=== PATIENT | female | born 1950 | race American Indian/Alaskan Native ===

== ENCOUNTER 2016-12-25 18:57 | Emergency (ER) | payer MEDICARE ==
[2016-12-25 19:35] VITALS: BP 169/91
== END 2016-12-26 19:45 | disposition left against medical advice (07) ==
LOC: ED 18:57
DX: M25.511 Pain in right shoulder (principal); M19.90 Unspecified osteoarthritis, unspecified site; Z53.21 Procedure and treatment not carried out due to patient leaving prior to being seen by health care provider

== ENCOUNTER 2017-03-04 11:47 | Emergency (ER) | payer MEDICARE ==
--- NOTE | 2017-03-04 17:39 | Emergency Department Report ---
HPI - General Chief Complaint: Extremity Injury, Lower Time Seen by Provider: 03/04/17 17:23 - HPI HPI: Room 3 The pt is a 66 y/o F p/w a cc of foot cramping. The pt appears slightly confused but states she came to the emergency dept 2/2 bilat foot cramping. The pt states she "ran away" from home today and went to a friends house for breakfast. the pt then states she began to "smell paint." the pt then states her feet began cramping and that is why she came to the ED. The pt states the cramping has stopped. Pt is A & O x 4 ED Past Medical Hx - Past Medical History Hx Arthritis: Yes Hx Psychiatric Treatment: Yes ("CAN'T ELABORATE ON IT FOR CERTAIN REASONS") - Surgical History Past Surgical History?: No - Family History Family history: no significant - Social History Smoking Status: Never Smoker Substance Use Type: None - Medications Home Medications: Home Medications Medication Instructions Recorded Confirmed Last Taken Type Cyclobenzaprine [Flexeril 10 MG 10 mg PO BID 05/14/15 05/14/15 Unknown History TAB] Naproxen [Naprosyn] 500 mg PO BID 05/14/15 05/14/15 Unknown History HYDROcodone/APAP 7.5-325 [[place] 1 each PO Q8HR PRN #15 tablet 05/15/15 Unknown Rx 7.5/325] Magnesium Hydroxide [Milk of 400 mg PO ONCE #1 udc 05/15/15 Unknown Rx Magnesia] ED Review of Systems ROS: Stated complaint: POOR CIRCULATION Other details as noted in HPI Comment: All other systems reviewed and negative Constitutional: denies: chills, fever Eyes: denies: eye pain, eye discharge, vision change ENT: denies: ear pain, throat pain Respiratory: no symptoms reported Cardiovascular: denies: chest pain, palpitations Endocrine: no symptoms reported Gastrointestinal: denies: abdominal pain, nausea, diarrhea Genitourinary: denies: urgency, dysuria, discharge Musculoskeletal: myalgia Skin: denies: rash, lesions Neurological: denies: headache, weakness, paresthesias Psychiatric: other (?) Hematological/Lymphatic: denies: easy bleeding, easy bruising Physical Exam - Physical Exam Vital Signs: Vital Signs 03/04/17 12:00 Temperature 98.0 F Pulse Rate 55 L Respiratory 17 Rate Blood Pressure 154/86 O2 Sat by Pulse 98 Oximetry Physical Exam: GEN: WD, WN F sitting on stretcher not appearing to be in acute distress. HEENT: normocephalic, atraumatic PULM: CTA B CV: rrr, no m/r/g ABD: s, nt, nd Neuro: GCS 15 Ext: 1+ bilat LE edema ED Course Vital Signs 03/04/17 12:00 Temperature 98.0 F Pulse Rate 55 L Respiratory 17 Rate Blood Pressure 154/86 O2 Sat by Pulse 98 Oximetry - Consultations Consultation #1: 03/04/17 19:00 Case d/w Pts son ( Mr Crow Hector [phone])- He states pt has h/o Schizophrenia and bipolar d/o. Stets the pt left the home last night and they did not know where she was. States this has happened before ED Medical Decision Making - Lab Data Result diagrams: 03/04/17 20:07 03/04/17 20:09 Laboratory Tests 03/04/17 03/04/17 03/04/17 20:07 20:07 20:08 WBC 4.1 L RBC 4.57 Hgb 13.0 Hct 39.6 MCV 87 MCH 28 MCHC 33 RDW 14.0 Plt Count 258 Lymph % (Auto) 43.8 H [place] % (Auto) 9.0 H Eos % (Auto) 2.8 Baso % (Auto) 0.5 Lymph # 1.8 [place] # 0.4 Eos # 0.1 Baso # 0.0 Seg Neutrophils % 43.9 Seg Neutrophils # 1.8 Sodium Potassium Chloride Carbon Dioxide Anion Gap BUN Creatinine Estimated GFR BUN/Creatinine Ratio Glucose Calcium Total Creatine Kinase 215 H CK-MB (CK-2) 3.8 CK-MB (CK-2) Rel Index 1.7 Troponin T < 0.010 NT-Pro-B Natriuret Pep 158.7 Urine Color Urine Turbidity Urine pH Ur Specific [place] Urine Protein Urine Glucose (UA) Urine Ketones Urine Blood Urine Nitrite Urine Bilirubin Urine Urobilinogen Ur Leukocyte Esterase Urine WBC (Auto) Urine RBC (Auto) U Epithel Cells (Auto) Urine Bacteria (Auto) Urine Mucus Urine Opiates Screen Urine Methadone Screen Ur Barbiturates Screen Ur Phencyclidine Scrn Ur Amphetamines Screen U Benzodiazepines Scrn Urine Cocaine Screen U Marijuana (THC) Screen Drugs of Abuse Note Plasma/Serum Alcohol < 0.01 03/04/17 03/04/17 03/04/17 20:09 22:24 22:24 WBC RBC Hgb Hct MCV MCH MCHC RDW Plt Count Lymph % (Auto) [place] % (Auto) Eos % (Auto) Baso % (Auto) Lymph # [place] # Eos # Baso # Seg Neutrophils % Seg Neutrophils # Sodium 142 Potassium 3.7 Chloride 101.8 Carbon Dioxide 27 Anion Gap 17 BUN 8 Creatinine 0.5 L Estimated GFR > 60 BUN/Creatinine Ratio 16.00 Glucose 81 Calcium 9.0 Total Creatine Kinase CK-MB (CK-2) CK-MB (CK-2) Rel Index Troponin T NT-Pro-B Natriuret Pep Urine Color Yellow Urine Turbidity Clear Urine pH 7.0 Ur Specific [place] 1.010 Urine Protein <15 mg/dl Urine Glucose (UA) Neg Urine Ketones Tr Urine Blood Neg Urine Nitrite Neg Urine Bilirubin Neg Urine Urobilinogen < 2.0 Ur Leukocyte Esterase Neg Urine WBC (Auto) < 1.0 Urine RBC (Auto) 3.0 U Epithel Cells (Auto) 1.0 Urine Bacteria (Auto) 1+ Urine Mucus Few Urine Opiates Screen Presumptive negative Urine Methadone Screen Presumptive negative Ur Barbiturates Screen Presumptive negative Ur Phencyclidine Scrn Presumptive negative Ur Amphetamines Screen Presumptive negative U Benzodiazepines Scrn Presumptive negative Urine Cocaine Screen Presumptive negative U Marijuana (THC) Screen Presumptive negative Drugs of Abuse Note Disclamer Plasma/Serum Alcohol - Differential Diagnosis AMS, Dementia, Critical care attestation.: If time is entered above; I have spent that time in minutes in the direct care of this critically ill patient, excluding procedure time. ED Disposition Clinical Impression: Schizophrenia Disposition: DC/TX-65 PSY HOSP/PSY UNIT Is pt being admited?: No Does the pt Need Aspirin: No Condition: Stable Referrals: DR RAGHU [Other] - 3-5 Days Time of Disposition: 23:25 (awaiting placement)
[2017-03-04 20:17] LABS: Basophils % (Auto) 0.5 % (0.0-1.8); Eosinophils % (Auto) 2.8 % (0.0-4.3); Hematocrit 39.6 % (30.3-42.9); Mean Corpuscular HGB Conc 33 % (30-34); Mean Corpuscular Hemoglobin 28 pg (28-32); Mean Corpuscular Volume 87 fl (79-97); Platelet Count 258 K/mm3 (140-440); Red Blood Count 4.57 M/mm3 (3.65-5.03); White Blood Count 4.1 K/mm3 (4.5-11.0)
[2017-03-04 20:43] LABS: Anion Gap 17 mmol/L; Blood Urea Nitrogen 8 mg/dL (7-17); Carbon Dioxide 27 mmol/L (22-30); Chloride 101.8 mmol/L (98-107); Glucose 81 mg/dL (65-100); Potassium 3.7 mmol/L (3.6-5.0); Sodium 142 mmol/L (137-145)
[2017-03-04 20:45] LABS: Creatine Kinase 215 units/L (30-135); Creatine Kinase MB 3.8 ng/mL (0.0-4.0)
[2017-03-04 22:29] LABS: Urine Drugs of Abuse Note Disclamer
[2017-03-04 22:36] LABS: Bacteria,Urine 1+ /HPF (Negative); Bilirubin,Urine NEG (Negative); Blood,Urine NEG (Negative); Ketones,Urine TR mg/dL (Negative); Leukocyte Esterase,Urine NEG (Negative); Mucus,Urine FEW /HPF; Nitrite,Urine NEG (Negative); Protein,Urine <15 mg/dL mg/dL (Negative); Urobilinogen,Urine < 2.0 mg/dL (<2.0); WBC,Urine < 1.0 /HPF (0.0-6.0)
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
[2017-03-06] MEDS ORDERED: RisperDAL PO ONE (17:50)
[2017-03-06] MEDS ORDERED: RisperDAL ONE (22:55)
--- NOTE | 2017-03-08 12:06 | Progress Note ---
Subjective - Reason for Consult Consult date: 03/08/17 Reason for consult: Psychiatry Follow-up - Chief Complaint Chief complaint: "I am okay" Patient is a 66-year-old female who was brought to the emergency room complaining of cramps in her feet. Today patient is calm and cooperative during the assessment. She stated that she does not want to return to live with her son because they do not "see eye to eye." She stated that she did hear voices in the attic at her son's home and believe they are still active. Per collateral from her son Crow Suero, his mother has wandered from the home several times, displayed irritable behavior, and have spoken to their kids about masturbating because she does not have sex. He stated that his kids are scared of her. Also, he stated that the patient go days without sleep. He stated that this behavior has been going on for several years. The patient denies displaying bizarre behavior at home. She denies SI/HI's and AVH's. She denies any side effects of her medications. Mental Status Exam - Vital signs Last Vital Signs Temp 98 F 03/07/17 19:55 Pulse 61 03/07/17 19:55 Resp 18 03/07/17 19:55 BP 144/63 03/07/17 19:55 Pulse Ox 98 03/07/17 19:55 - Exam Narrative exam: MSE: Appearance: calm, cooperative Behavior: regular eye contact Speech: regular rate and tone Mood: "okay" Affect: labile Thought Process: circumstantial Thought Content: Denies SI/HI's and AVH's Motor Activity: lying in bed Cognition: A/Ox 3 Insight: variable Judgment: variable Assessment and Plan Impression: Schizoaffective DO. Today patient is calm and cooperative during the assessment. Recommendation/Plan: Continue 1013 with placement to inpatient psy services. Continue Risperdal 0.5 mg PO HS for mood/psychotic. Discussed possible metabolic side effects of Risperdal with patient.
--- NOTE | 2017-03-09 10:34 | Progress Note ---
Subjective - Reason for Consult Consult date: 03/09/17 Reason for consult: Psychiatry Follow-up - Chief Complaint Chief complaint: "Yonis" Patient is a 66-year-old female who was brought to the emergency room complaining of cramps in her feet. Today patient is calm and cooperative during the assessment. She stated that she would like to return to her home once discharged. She denies SI/HI's and AVH's. Per conversation with her son Crow Suero [phone] the patient can return back to his residence. Mental Status Exam - Vital signs Last Vital Signs Temp 98.5 F 03/08/17 22:00 Pulse 74 03/08/17 22:00 Resp 18 03/08/17 22:00 BP 126/68 03/08/17 22:00 Pulse Ox 100 03/08/17 22:00 - Exam Narrative exam: MSE: Appearance: calm, cooperative Behavior: regular eye contact Speech: regular rate and tone Mood: "okay" Affect: congruent to mood Thought Process: linear Thought Content: Denies SI/HI's and AVH's Motor Activity: lying in bed Cognition: A/Ox 3 Insight: fair Judgment: fair Assessment and Plan Impression: Schizoaffective DO. Today patient is calm and cooperative during the assessment. Recommendation/Plan: Rescind 1013. Patient can follow-up with [facility] for outpatient psy services.
--- NOTE | 2017-03-09 16:49 | Event Note ---
Date: 03/09/17 Patient is a 66-year-old female who presented initially for poor circulation and hearing voices. Patient states that she has no homicidal or suicidal ideation. She states though that she is having cramps in her leg. I'll prescribe daily potassium pill for patient. Patient is in minimal distress at this time has been cleared by psychiatry to be discharged and to follow up with [facility]. On my assessment patient is okay to be discharged.
[2017-03-09 17:38] VITALS: BP 138/65
[2017-03-09] MEDS ORDERED: RisperDAL PO SCH (22:00)
== END 2017-03-09 17:57 ==
LOC: ED 11:47 → EEVIPCON 11:47 → ED 03-09 17:57
DX: F20.9 Schizophrenia, unspecified (principal); M79.672 Pain in left foot; M79.671 Pain in right foot
CPT/HCPCS: 36415; 80048; 80307; 81001; 82550; 82553; 83880; 84484; 85025; 99285; G0480; 80320

== ENCOUNTER 2017-03-15 09:43 | Emergency (ER) | payer MEDICARE ==
[2017-03-15 09:58] VITALS: BP 146/77
--- NOTE | 2017-03-16 15:07 | Emergency Department Report ---
Entered by ERMIAS SMITH, acting as scribe for BRENT ARIAS PA. ED Lower Extremity HPI - General Chief Complaint: Extremity Problem,Nontraumatic Stated Complaint: FEET DRYNESS Time Seen by Provider: 03/15/17 11:07 Source: patient Mode of arrival: Ambulatory Limitations: No Limitations - History of Present Illness Initial Comments: 66 y/o female presents with "dry" feet that gradually started over the past week , improved by walking. Pt denies any trauma or injury to the foot. Pt denies taking any medications or seeing her PCP for a check-up recently. She states her feet simply feels dry and she is from lotion on them. Patient denies calf pain bilaterally. MD Complaint: foot injury (dry feet) -: Gradual, week(s) (1) Injury: Foot: Left (dry feet) Type of Injury: unknown Place: street/outdoors Severity: mild Severity scale (0 -10): 2 Improves With: nothing Worsens With: nothing Context: walking Associated Symptoms: ambulatory. denies: snap/pop sensation, swelling, numbness , tingling, unable to bear weight, able to partially bear weight - Related Data Home Medications Medication Instructions Recorded Confirmed Last Taken Cyclobenzaprine [Flexeril 10 MG 10 mg PO BID 05/14/15 03/05/17 03/04/17 TAB] Previous Rx's Medication Instructions Recorded Last Taken Type HYDROcodone/APAP 7.5-325 [[place] 1 each PO Q8HR PRN #15 tablet 05/15/15 03/04/17 Rx 7.5/325] Magnesium Hydroxide [Milk of 400 mg PO ONCE #1 udc 05/15/15 03/04/17 Rx Magnesia] Potassium Chloride [Klor-Con] 20 meq PO DAILY #10 packet 03/09/17 Unknown Rx Naproxen [Naprosyn TAB] 500 mg PO BID #30 tablet 03/15/17 Unknown Rx Allergies Allergy/AdvReac Type Severity Reaction Status Date / Time No Known Allergies Allergy Verified 03/04/17 12:00 ED Review of Systems Comment: All other systems reviewed and negative Constitutional: denies: chills, fever ENT: denies: ear pain Respiratory: denies: cough, shortness of breath Cardiovascular: denies: chest pain Gastrointestinal: denies: abdominal pain, nausea, vomiting, diarrhea Musculoskeletal: denies: other (swelling) Skin: other (dry feet) ED Past Medical Hx - Past Medical History Previous Medical History?: Yes Hx Arthritis: Yes Hx Psychiatric Treatment: Yes ("CAN'T ELABORATE ON IT FOR CERTAIN REASONS") - Surgical History Past Surgical History?: No - Social History Smoking Status: Never Smoker Substance Use Type: None - Medications Home Medications: Home Medications Medication Instructions Recorded Confirmed Last Taken Type Cyclobenzaprine [Flexeril 10 MG 10 mg PO BID 05/14/15 03/05/17 03/04/17 History TAB] HYDROcodone/APAP 7.5-325 [[place] 1 each PO Q8HR PRN #15 tablet 05/15/15 03/05/17 03/04/17 Rx 7.5/325] Magnesium Hydroxide [Milk of 400 mg PO ONCE #1 udc 05/15/15 03/05/17 03/04/17 Rx Magnesia] Potassium Chloride [Klor-Con] 20 meq PO DAILY #10 packet 03/09/17 Unknown Rx Naproxen [Naprosyn TAB] 500 mg PO BID #30 tablet 03/15/17 Unknown Rx ED Physical Exam - General Limitations: No Limitations - Other Other exam information: GENERAL: Patient is alert and oriented x 3. No apparent distress, normal gait, atraumatic. HEAD: Head is normocephalic and atraumatic. EYES: Extraocular movements are intact. Pupils are equal, round, and reactive to light and accommodation. EARS: Symmetrical, atraumatic, non tender, ear canal clear with moderate cerumen , tympanic membrane non inflamed. Gross auditory nml bilaterally. NOSE: Nose symmetrical, nontender. Nares appeared normal. MOUTH:Mouth is well hydrated and without lesions. Mucous membranes are moist. Uvula midline. Tongue not elevated. Posterior pharynx clear, no exudate or lesions. Tonsils are not erythematous or swollen. BACK: normal inspection, full ROM. No CVA tenderness, no paraspinal tenderness, no vertebral tenderness NECK: Supple. Non edematous, no carotid bruits. No lymphadenopathy or thyromegaly. BREAST: Symmetrical. Supple bilaterally, No Masses, lumps, lesions, ulcerations. LUNGS: Symmetrical with respiration, no wheezing, no rales, no crackles, CTAB HEART: Regular rate and rhythm with normal S1/S2 present. No murmurs, rubs, or gallops. ABDOMEN: Soft, nondistended. Nontender to palpation on all quadrants. No organomegaly was noted. Positive bowel sounds. No CVA tenderness. EXTREMITIES/MUSCULOSKELETAL: No cyanosis, clubbing, rash. +1 pitting edema noted on the left ankle. Nontender to palpation bilaterally .Full ROM bilaterally. No lesions, erythema noted . UE/LE Pulses 2+ bilaterally. LE and UE 5+ strength bilaterally. No calf TTP or swelling bilaterally. SKIN: Warm and dry. No lesions, ulceration or induration present NEUROLOGIC: No focal deficit., Cranial nerves II - XII are grossly intact. No loss of sensation. No facial droop. Negative romberg.. PSYCHIATRIC: Mood is congruent with affect. Denies suicidal or homicidal ideations ED Course Vital Signs 03/15/17 09:52 Temperature 98.3 F Pulse Rate 72 Respiratory 16 Rate Blood Pressure 146/77 O2 Sat by Pulse 97 Oximetry ED Lower Extremity MDM - Medical Decision Making 66 y/o female presents with dry feet ED course: Pt denies any injury or any PMHx. Pt is not ill-appearing. Discussed with pt to elevate feet and ambulate regularly for the next couple of days. Discussed the follow-up physician as referred. Discuss his symptoms return or worsen to return to the ED Pt states understanding and will follow instructions. Vital signs stable. Patient is in no acute distress. ED Disposition Clinical Impression: Ankle and/or foot joint stiffness Disposition: DC-01 TO HOME OR SELFCARE Is pt being admited?: No Does the pt Need Aspirin: No Condition: Stable Instructions: Foot Sprain (ED), Arthralgia (ED) Prescriptions: Naproxen [Naprosyn TAB] 500 mg PO BID #30 tablet Referrals: PRIMARY MD DEMETRIO [Primary Care Provider] - 3-5 Days CARLOS ELDRIDGE MD [Referring] - 3-5 Days [facility] [Outside] - 3-5 Days [facility] [Outside] - 3-5 Days Forms: Accompanied Note, Work/School Release Form(ED) Time of Disposition: 11:56 This documentation as recorded by the SARAH gilman RYAN,accurately reflects the service I personally performed and the decisions made by ,BRENT ARIAS PA.
== END 2017-03-15 12:25 | disposition home or self-care (01) ==
LOC: ED 09:43
DX: M25.672 Stiffness of left ankle, not elsewhere classified (principal); M25.675 Stiffness of left foot, not elsewhere classified; M19.90 Unspecified osteoarthritis, unspecified site; X58.XXXA Exposure to other specified factors, initial encounter; Y93.89 Activity, other specified; Y92.89 Other specified places as the place of occurrence of the external cause; Y99.8 Other external cause status
CPT/HCPCS: 99282

== ENCOUNTER 2017-08-05 | Emergency (ER) | payer MEDICARE ==
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
[2017-08-05 02:51] LABS: Basophils % (Auto) 0.7 % (0.0-1.8); Eosinophils # (Auto) 0.1 K/mm3 (0.0-0.4); Eosinophils % (Auto) 1.2 % (0.0-4.3); Hematocrit 38.2 % (30.3-42.9); Hemoglobin 12.4 gm/dl (10.1-14.3); Lymphocytes # (Auto) 1.6 K/mm3 (1.2-5.4); Lymphocytes % (Auto) 23.1 % (13.4-35.0); Mean Corpuscular HGB Conc 33 % (30-34); Mean Corpuscular Hemoglobin 28 pg (28-32); Mean Corpuscular Volume 86 fl (79-97); Monocytes # (Auto) 0.6 K/mm3 (0.0-0.8); Monocytes % (Auto) 8.8 % (0.0-7.3); Platelet Count 243 K/mm3 (140-440); Red Blood Count 4.44 M/mm3 (3.65-5.03); Red Cell Distribution Width 14.5 % (13.2-15.2)
[2017-08-05 02:54] LABS: Bilirubin,Urine NEG (Negative); Blood,Urine NEG (Negative); Color,Urine Yellow (Yellow); Nitrite,Urine NEG (Negative); Protein,Urine <15 mg/dL mg/dL (Negative); Urobilinogen,Urine < 2.0 mg/dL (<2.0)
[2017-08-05 02:55] LABS: Amphetamine Screen,Urine PRESUMPTIVE NEGATIVE; Benzodiazepines Screen,Urine PRESUMPTIVE NEGATIVE; Cannabinoid Screen,Urine PRESUMPTIVE NEGATIVE; Cocaine Screen,Urine PRESUMPTIVE NEGATIVE; Methadone Screen,Urine PRESUMPTIVE NEGATIVE; Opiate Screen,Urine PRESUMPTIVE NEGATIVE
[2017-08-05 03:31] LABS: BUN/Creatinine Ratio TNR; Blood Urea Nitrogen TNR mg/dL (7-17)
[2017-08-05 03:32] LABS: Calcium TNR mg/dL (8.4-10.2); Hemolysis Index TNR
[2017-08-05] MEDS ORDERED: CATAPRES PO ONE (04:19)
[2017-08-05 07:53] VITALS: BP 135/70
--- NOTE | 2017-08-05 10:42 | Consultation ---
History of Present Illness - Reason for Consult Consult date: 08/05/17 Reason for consult: Mental Health Evaluation Requesting physician: ERMIAS PEREZ - Chief Complaint Chief complaint: "I don't want to talk" - History of Present Psychiatric Illness This is a 67-year-old female presents to the emergency department from home via EMS with her son currently at bedside complaint of needing a psychiatric evaluation. Per the record, the patient has a hx of Bipolar DO. Today the patient is uncooperative during the assessment. She refuses to answer most of the questions asked of her. Per the ER note, the patient was aggressive and combative towards her son by throwing a vacuum acid tank cleaner at him. No gestures of SI /HI's. Medications and Allergies Allergies Allergy/AdvReac Type Severity Reaction Status Date / Time No Known Allergies Allergy Verified 03/04/17 12:00 Home Medications Medication Instructions Recorded Confirmed Last Taken Type Cyclobenzaprine [Flexeril 10 MG 10 mg PO BID 05/14/15 08/05/17 03/04/17 History TAB] HYDROcodone/APAP 7.5-325 [[place] 1 each PO Q8HR PRN #15 tablet 05/15/15 08/05/17 03/04/17 Rx 7.5/325] Magnesium Hydroxide [Milk of 400 mg PO ONCE #1 udc 05/15/15 08/05/17 03/04/17 Rx Magnesia] Potassium Chloride [Klor-Con] 20 meq PO DAILY #10 packet 03/09/17 08/05/17 Unknown Rx Naproxen [Naprosyn TAB] 500 mg PO BID #30 tablet 03/15/17 08/05/17 Unknown Rx Past psychiatric history - Past Medical History Past Medical History: other (Per the record Arthritis) Past Surgical History: Other (Unable to obtain) - past Psychiatric treatment and history psychiatric treatment history: Patient refuses to answer questions about her psy hx and fam psy hx. - Social History Social history: lives with family Mental Status Exam - Vital signs Last Vital Signs Temp 98.4 F 08/05/17 07:51 Pulse 55 L 08/05/17 07:51 Resp 16 08/05/17 07:53 BP 135/70 08/05/17 07:51 Pulse Ox 98 08/05/17 07:53 - Exam Narrative exam: MSE: Appearance: uncooperative Behavior: poor eye contact Speech: regular rate and tone Mood: irritable Affect: congruent to mood Thought Process: unable to assess Thought Content: no gestures of SI/HI's and AVH's Motor Activity: lying in the bed Cognition: A/O x3 Insight: unable to assess Judgment: unable to assess Results Result Diagrams: 08/05/17 02:34 08/05/17 10:25 Abnormal lab results 08/05/17 08/05/17 Range/Units 02:34 02:34 [place] % (Auto) 8.8 H (0.0-7.3) % Salicylates < 0.3 L (2.8-20.0) mg/dL All other labs normal. Assessment and Plan Assessment and plan: Impression: Per the record, Hx of Bipolar DO. Unspecified Mood DO. Today the patient is uncooperative during the assessment. UDS is negative. Recommendation/Plan: Continue 1013 and with placement to [facility] today.
[2017-08-05 11:10] LABS: BUN/Creatinine Ratio 20; Blood Urea Nitrogen 14 mg/dL (7-17); Calcium 8.5 mg/dL (8.4-10.2); Hemolysis Index 68
== END 2017-08-05 14:36 ==
LOC: ED
DX: F31.9 Bipolar disorder, unspecified (principal); I10 Essential (primary) hypertension; F22 Delusional disorders; F29 Unspecified psychosis not due to a substance or known physiological condition
CPT/HCPCS: 36415; 80048; 80307; 81001; 85025; 99285; G0480; 80320